=== PATIENT | male | born 1970 | race Caucasian/White ===

== ENCOUNTER 2020-08-07 09:12 | Emergency (ER) | payer OTHER, SELFPAY ==
[2020-08-07 10:38] VITALS: BP 118/91; PULSE 112; RESP 20; TEMP 36.8; O2SAT 98
--- NOTE | 2020-08-07 10:39 | ED.ALCOHOL ---
HPI - Alcohol General Chief Complaint: Alcohol Stated Complaint: etoh w/d Time Seen by Provider: 08/07/20 10:02 Source: patient and family (Girlfriend) Mode of arrival: ambulatory Limitations: no limitations History of Present Illness HPI narrative: Patient is a 49-year-old male who presents complaining alcohol dependence. He reports he desires rehab. He reports drinking 12+ beers this a.m. Patient reports nausea without vomiting. Reports history of alcoholism in the past, reports was sober for 12 or 13 years, reports started drinking approximately 3 to 4 years ago. He denies chest pain, shortness of breath or other complaints. Patient's girlfriend reports that patient will drink multiple drinks of alcohol, vomit and then began drinking again. He denies falls or recent injuries. He denies suicidal ideation or homicidal ideation. MD complaint: alcohol intoxication, alcohol dependence and desires rehab Related Data Home Medications Medication Instructions Recorded Confirmed sertraline 50 mg PO DAILY 08/07/20 08/07/20 trazodone 100 mg PO HS 08/07/20 08/07/20 Allergies Allergy/AdvReac Type Severity Reaction Status Date / Time No Known Allergies Allergy Verified 08/07/20 10:46 Review of Systems Review of Systems: Narrative: CONSTITUTIONAL: Denies fever, chills, or sweats. EYES: Denies visual changes, redness, or discharge. ENT: Denies rhinorrhea, congestion, sore throat, or otalgia. CARDIOVASCULAR: Denies chest pain, palpitations, or edema. RESPIRATORY: Denies cough or dyspnea. GASTROINTESTINAL: Reports nausea without vomiting GENITOURINARY: Denies dysuria or hematuria. SKIN: Denies rash or itching. MUSCULOSKELETAL: Denies back pain, joint pain, or myalgia. NEUROLOGIC: Denies headache, numbness, dizziness, or weakness. PSYCHIATRIC: Denies anxiety or depression. [facility] Past Medical History Medical History (Updated 08/07/20 @ 12:25 by ANNIE Meeks) Alcohol dependence Anxiety Surgical History Surgical History (Updated 08/07/20 @ 10:43 by ANNIE Meeks) No significant past surgical history Per patient Family History Family History (Updated 08/07/20 @ 10:43 by ANNIE Meeks) Other No significant family history Social History Social History (Updated 08/07/20 @ 10:43 by ANNIE Meeks) Smoking status: Current every day smoker Tobacco type: cigarettes Alcohol intake: current Alcohol use details: 12 plus drinks daily Substance use: current Substance use type: marijuana Living arrangements: with family Gender identity (if verbalized by the patient): Male Comments At the time of signature, I have reviewed and agree with nursing past medical, surgical, social, and family history unless otherwise noted. Please see nursing chart for further information. There is no relevant family history pertinent to the presenting complaint. Exam Narrative: Exam Narrative: GENERAL: Well-appearing, well-nourished, and in no acute distress. HEAD: Normocephalic, atraumatic. EYES: EOMI. No redness or drainage. Conjunctiva are normal. ENT: Mucous membranes pink and moist. CHEST: No respiratory distress. Clear to auscultation. HEART: Regular rate and rhythm. No murmur appreciated. Normal peripheral pulses. GI: Soft, nontender without rebound, or guarding. No distention. Bowel sounds normal in all quadrants. MUSCULOSKELETAL: No bony tenderness. EXTREMITIES: Normal range of motion. No edema. SKIN: Warm, dry, no rash. NEURO: No focal deficits. Alert and oriented x3. Gait steady. PSYCH: Normal affect. No signs of depression or anxiety. Course Course Emergency Course: Patient also reporting right sided lower back pain, intermittent, denies injury. Denies loss of bowel or bladder control, denies numbness and tingling to extremities. No tenderness with palpation. Discussed most likely musculoskeletal. Toradol to be given at this time for pain. Vital Signs Vital si
[2020-08-07 11:03] LABS: Alanine Aminotransferase 35 U/L (4-50); Albumin Level 4.9 g/dL (3.5-5.1); Alkaline Phosphatase 53 U/L (38-126); Anion Gap 11 mmol/L (8-16); Aspartate Amino Transferase 42 U/L (17-59); Bilirubin,Total 0.7 mg/dL (0.2-1.3); Blood Urea Nitrogen 7 mg/dL (9-20); Calcium 9.2 mg/dL (8.4-10.2); Carbon Dioxide 23 mmol/L (22-30); Chloride 102 mmol/L (98-107); Estimated CRCL calculation 112 ml/min; Estimated Glomerular Filt Rate > 60; Glucose 81 mg/dL (75-110); Lipase 175 U/L (23-300); Potassium 4.2 mmol/L (3.4-5.0); Sodium 136 mmol/L (137-145)
[2020-08-07 11:06] LABS: Ethanol 100 mg/dL (<10)
[2020-08-07 11:17] LABS: Basophils Absolute Auto 0.1 K/mm3 (0.0-0.1); Basophils Percent Auto 0.8 % (0.2-1.2); Eosinophils Absolute Auto 0.1 K/mm3 (0-0.3); Eosinophils Percent Auto 0.8 % (0-4.4); Hematocrit 47.6 % (42.0-52.0); Hemoglobin 16.7 g/dL (14.0-18.0); Immature Granulocyte Absolute 0.07 K/mm3 (0.00-0.031); Immature Granulocyte Percent A 0.5 % (0-0.5); Lymphocytes Absolute Auto 2.38 K/mm3 (0.9-3.2); Lymphocytes Percent Auto 18.1 % (18.3-44.2); Mean Corpuscular HGB Conc 35.1 g/dl (32-36); Mean Corpuscular Hemoglobin 29.8 pg (26-34); Mean Corpuscular Volume 84.8 fl (80-100); Mean Platelet Volume 10.3 fl (7.4-10.4); Monocytes Absolute Auto 1.2 K/mm3 (0.1-0.6); Monocytes Percent Auto 8.8 % (2.6-8.5); Neutrophils Absolute Auto 9.3 K/mm3 (1.3-6.7); Platelet Count Result 281 k/mm3 (150-375); Red Blood Count 5.61 M/mm3 (4.6-6.20); Red Cell Distribution Width 12.4 % (11.5-14.5); White Blood Count 13.1 K/mm3 (4.5-10.0)
[2020-08-07 11:18] VITALS: BP 115/76; PULSE 100; RESP 20; O2SAT 100
[2020-08-07] MEDS: ONDANSETRON INJ 4 MG/2 ML VIAL IV PUSH (11:18)
[2020-08-07] MEDS: SODIUM CHLORIDE 0.9% IV 1,000 ML 999 ML IV CONT (11:18)
[2020-08-07 11:46] VITALS: BP 136/88; PULSE 105; RESP 20; O2SAT 100
[2020-08-07 12:19] VITALS: BP 118/80; PULSE 90; RESP 20; O2SAT 100
== END 2020-08-07 12:31 | disposition home or self-care (01) ==
PROVIDERS: Emergency Provider Nurse Practitioner
DX: F10.20 Alcohol dependence, uncomplicated (principal); M54.5 Low back pain; F41.9 Anxiety disorder, unspecified; F17.210 Nicotine dependence, cigarettes, uncomplicated; Y90.5 Blood alcohol level of 100-119 mg/100 ml
CPT/HCPCS: 36415; 80053; 80307; 82248; 83690; 85025; 96361; 96374; 99284; J2405; J7030